=== PATIENT | male | born 1990 | race Caucasian/White ===

== ENCOUNTER 2018-10-20 16:30 | Emergency (ER) | payer SELFPAY ==
--- NOTE | 2018-10-20 17:40 | ER ---
Nurse's Notes [facility] Name: Geoffrey Hurtado III Age: 28 yrs Sex: Male : 1990 Arrival Date: 10/20/2018 Time: 16:31 Bed 11 Private MD: Diagnosis: Allergic rhinitis due to pollen Presentation: 10/20 16:49 Presenting complaint: Sinus congestion, sneezing, and itching eyes and throat x 2 days, hb unrelieved by OTC allergy medication. Denies SOB/fever. Transition of care: patient was not received from another setting of care. 16:49 Method Of Arrival: Ambulatory hb 16:51 Onset of symptoms was October 19, 2018. Risk Assessment: Do you want to hurt yourself or hb someone else? Patient reports no desire to harm self or others. Care prior to arrival: None. 16:51 Acuity: MIRIAM 4 hb 18:30 Initial Sepsis Screen: Does the patient meet any 2 criteria? No. Patient's initial aj1 sepsis screen is negative. Does the patient have a suspected source of infection? No. Patient's initial sepsis screen is negative. Historical: - Allergies: 16:52 No Known Allergies; hb - Home Meds: 16:52 None [Active]; hb - PMHx: 16:52 Seasonal Allergies; hb - PSHx: 16:52 None; hb - Immunization history:: Adult Immunizations up to date. - Social history:: Smoking status: Patient uses tobacco products, smokes one-half pack cigarettes per day. - Ebola Screening: : No symptoms or risks identified at this time. Screenin:30 Abuse screen: Denies threats or abuse. Denies injuries from another. Nutritional aj1 screening: No deficits noted. Tuberculosis screening: No symptoms or risk factors identified. 18:30 Fall Risk None identified. aj1 Assessment: 17:30 General: Appears in no apparent distress. comfortable, Behavior is calm, cooperative, aj1 appropriate for age. Pain: Denies pain. Neuro: Level of Consciousness is awake, alert, obeys commands, Oriented to person, place, time, situation. Cardiovascular: Patient's skin is warm and dry. Respiratory: Reports cough that is dry, Airway is patent Respiratory effort is even, unlabored, Respiratory pattern is regular, symmetrical. GI: No signs and/or symptoms were reported involving the gastrointestinal system. : No signs and/or symptoms were reported regarding the genitourinary system. EENT: Reports itchy, watery eyes, itchy throat. Derm: No signs and/or symptoms reported regarding the dermatologic system. Skin is pink, warm \T\ dry. normal. Musculoskeletal: No signs and/or symptoms reported regarding the musculoskeletal system. Circulation, motion, and sensation intact. Vital Signs: 16:51 BP 115 / 82; Pulse 70; Resp 16; Temp 98.1; Pulse Ox 100% on R/A; Pain 3/10; hb ED Course: 16:31 Patient arrived in ED. as 16:52 Triage completed. hb 16:52 Arm band placed on. hb 17:26 Jovani Caruso PA is PHCP. jr8 17:26 Arthur Castro MD is Attending Physician. jr8 17:30 Shilpa Bustillo, RN is Primary Nurse. aj1 17:30 Patient has correct armband on for positive identification. Bed in low position. Call aj1 light in reach. Side rails up X 1. 17:30 No provider procedures requiring assistance completed. aj1 18:29 Patient did not have IV access during this emergency room visit. aj1 Administered Medications: 18:05 Drug: Decadron 10 mg Route: IM; Site: left gluteus; aj1 18:29 Follow up: Response: No adverse reaction aj1 Outcome: 17:39 Discharge ordered by . jr8 18:29 Discharged to home ambulatory. aj1 18:29 Condition: good 18:29 Discharge instructions given to patient, Instructed on discharge instructions, follow up and referral plans. medication usage, Demonstrated understanding of instructions, follow-up care, medications, Prescriptions given X 2. 18:30 Patient left the ED. aj1 Signatures: Shilpa Bustillo, RN RN aj1 Patricia Rosales Josh, PA PA jr Irasema Mitchell, JACQUELYN VALLADARES
--- NOTE | 2018-10-20 17:40 | EDPHYS ---
Physician Documentation [facility] Name: Geoffrey Hurtado III Age: 28 yrs Sex: Male : 1990 Arrival Date: 10/20/2018 Time: 16:31 Bed 11 Private MD: ED Physician Arthur Castro HPI: 10/20 17:38 This 28 yrs old Male presents to ER via Ambulatory with complaints of Allergy jr8 Symptoms. 17:38 Patient stated that he is having rhinorrhea, itchy throat, watery eyes, sneezing for jr8 the past couple of weeks. Has been doing OTC antihistamines without relief . Severity of symptoms: At their worst the symptoms were moderate in the emergency department the symptoms are unchanged. It is unknown whether or not the patient has had similar symptoms in the past. The patient has not recently seen a physician. Historical: - Allergies: 16:52 No Known Allergies; hb - Home Meds: 16:52 None [Active]; hb - PMHx: 16:52 Seasonal Allergies; hb - PSHx: 16:52 None; hb - Immunization history:: Adult Immunizations up to date. - Social history:: Smoking status: Patient uses tobacco products, smokes one-half pack cigarettes per day. - Ebola Screening: : No symptoms or risks identified at this time. ROS: 17:38 Eyes: Negative for injury, pain, redness, and discharge, Neck: Negative for injury, jr8 pain, and swelling, Cardiovascular: Negative for chest pain, palpitations, and edema, Respiratory: Negative for shortness of breath, cough, wheezing, and pleuritic chest pain, Abdomen/GI: Negative for abdominal pain, nausea, vomiting, diarrhea, and constipation, Back: Negative for injury and pain, MS/Extremity: Negative for injury and deformity, Skin: Negative for injury, rash, and discoloration, Neuro: Negative for headache, weakness, numbness, tingling, and seizure. 17:38 ENT: Positive for rhinorrhea, sinus congestion, Negative for drainage from ear(s), ear pain, sore throat, difficulty swallowing, difficulty handling secretions, hoarseness. Exam: 17:38 Eyes: Pupils equal round and reactive to light, extra-ocular motions intact. Lids and jr8 lashes normal. Conjunctiva and sclera are non-icteric and not injected. Cornea within normal limits. Periorbital areas with no swelling, redness, or edema. ENT: Nares patent. No nasal discharge, no septal abnormalities noted. Tympanic membranes are normal and external auditory canals are clear. Oropharynx with no redness, swelling, or masses, exudates, or evidence of obstruction, uvula midline. Mucous membranes moist. Neck: Trachea midline, no thyromegaly or masses palpated, and no cervical lymphadenopathy. Supple, full range of motion without nuchal rigidity, or vertebral point tenderness. No Meningismus. Cardiovascular: Regular rate and rhythm with a normal S1 and S2. No gallops, murmurs, or rubs. Normal PMI, no JVD. No pulse deficits. Respiratory: Lungs have equal breath sounds bilaterally, clear to auscultation and percussion. No rales, rhonchi or wheezes noted. No increased work of breathing, no retractions or nasal flaring. Abdomen/GI: Soft, non-tender, with normal bowel sounds. No distension or tympany. No guarding or rebound. No evidence of tenderness throughout. Back: No spinal tenderness. No costovertebral tenderness. Full range of motion. Skin: Warm, dry with normal turgor. Normal color with no rashes, no lesions, and no evidence of cellulitis. MS/ Extremity: Pulses equal, no cyanosis. Neurovascular intact. Full, normal range of motion. Neuro: Awake and alert, GCS 15, oriented to person, place, time, and situation. Cranial nerves II-XII grossly intact. Motor strength 5/5 in all extremities. Sensory grossly intact. Cerebellar exam normal. Normal gait. Vital Signs: 16:51 BP 115 / 82; Pulse 70; Resp 16; Temp 98.1; Pulse Ox 100% on R/A; Pain 3/10; hb MDM: 17:26 Patient medically screened. jr8 17:38 Data reviewed: vital signs, nurses notes, and as a result, I will discharge patient. jr8 Data interpreted: Pulse oximetry: on room air is 100 %. Interpretation: normal. Counseling: I had a detailed discussion with the patient and/or guardian regarding: the historical points, exam findings, and any diagnostic results supporting the discharge/admit diagnosis, the need for outpatient follow up, a family practitioner, to return to the emergency department if symptoms worsen or persist or if there are any questions or concerns that arise at home. Administered Medications: 18:05 Drug: Decadron 10 mg Route: IM; Site: left gluteus; aj1 18:29 Follow up: Response: No adverse reaction aj1 Disposition: 10/21 06:45 Co-signature as Attending Physician, Arthur Castro MD I agree with the assessment and henok plan of care. Disposition: 10/20/18 17:39 Discharged to Home. Impression: Allergic rhinitis due to pollen. - Condition is Stable. - Discharge Instructions: Allergies, Adult, Nasal Allergies. - Prescriptions for Xyzal 5 mg Oral tablet - take 1 tablet by ORAL route once daily in the evening; 30 tablet. Prednisone 20 mg Oral Tablet - take 1 tablet by ORAL route once daily for 5 days; 5 tablet. - Work release form, Medication Reconciliation Form, Thank You Letter, Antibiotic Education, Prescription Opioid Use form. - Follow up: Private Physician; When: As needed; Reason: Recheck today's complaints, Continuance of care, Re-evaluation by your physician. - Problem is new. - Symptoms have improved. - Notes: Claritin D for one week then switch to Xyzal Signatures: Shilpa Bustillo, RN RN aj1 Arthur Castro MD MD cha Roszak, Josh, PA PA jr8 Irasema Mitchell RN RN Corrections: (The following items were deleted from the chart) 10/20 17:38 17:38 The patient has not experienced similar symptoms in the past, jr8 jr8 18:30 17:39 10/20/2018 17:39 Discharged to Home. Impression: Allergic rhinitis due to pollen. aj1 Condition is Stable. Forms are Medication Reconciliation Form, Thank You Letter, Antibiotic Education, Prescription Opioid Use. Follow up: Private Physician; When: As needed; Reason: Recheck today's complaints, Continuance of care, Re-evaluation by your physician. Problem is new. Symptoms have improved. jr8
[2018-10-20] MEDS ORDERED: DEXAMETHASONE 4 MG/ML VIAL ONE (18:12)
== END 2018-10-20 18:30 | disposition home or self-care (01) ==
LOC: ER 16:30
DX: J30.1 Allergic rhinitis due to pollen (principal); F17.210 Nicotine dependence, cigarettes, uncomplicated
CPT/HCPCS: 96372; 99283

== ENCOUNTER 2019-01-27 19:01 | Emergency (ER) | payer SELFPAY ==
--- NOTE | 2019-01-27 20:04 | RAD REPORT ---
EXAM DESCRIPTION: RAD - Chest Pa And Lat (2 Views) - 01/27/2019 7:58 pm CLINICAL HISTORY: TRAUMA Chest pain. COMPARISON: <Comparisons> FINDINGS: The lungs are clear. The heart is normal in size. No displaced fractures. IMPRESSION: No acute or concerning finding suspected.
--- NOTE | 2019-01-27 20:05 | RAD REPORT ---
EXAM DESCRIPTION: RAD - Knee Right 3 View - 01/27/2019 7:59 pm CLINICAL HISTORY: PAIN Trauma COMPARISON: <Comparisons> FINDINGS: No fracture or dislocation evident.
[2019-01-27] MEDS ORDERED: HYDROCODONE/APAP 5/325 MG TAB ONE (21:08)
[2019-01-27] MEDS ORDERED: hydrOXYzine HCl 25 MG TAB ONE (21:08)
--- NOTE | 2019-01-27 22:15 | ER ---
Nurse's Notes [facility] Name: Geoffrey Hurtado III Age: 29 yrs Sex: Male : 1990 Arrival Date: 01/27/2019 Time: 19:05 Bed 23 Private MD: Diagnosis: Fall (on) (from) other stairs and steps;Pain in right knee Presentation: 01/27 19:07 Presenting complaint: Patient states: He fell 6 feet off of a roof on Saturday, states aj1 that he landed on his side with his knee bent behind him. Reports pain to left shoulder and right knee. Denies hitting head, denies LOC, vomiting. Denies abdominal pain, denies chest pain. Transition of care: patient was not received from another setting of care. Onset of symptoms was January 2019. Risk Assessment: Do you want to hurt yourself or someone else? Patient reports no desire to harm self or others. Initial Sepsis Screen: Does the patient meet any 2 criteria? HR > 90 bpm. No. Patient's initial sepsis screen is negative. Does the patient have a suspected source of infection? No. Patient's initial sepsis screen is negative. Care prior to arrival: None. 19:07 Method Of Arrival: Ambulatory aj1 19:07 Acuity: MIRIAM 3 aj1 Triage Assessment: 19:09 General: Appears in no apparent distress. comfortable, Behavior is calm, cooperative, aj1 appropriate for age. Pain: Complains of pain in anterior aspect of left shoulder, posterior aspect of left shoulder and right knee Pain currently is 5 out of 10 on a pain scale. Neuro: Level of Consciousness is awake, alert, obeys commands, Oriented to person, place, time, situation. Cardiovascular: Patient's skin is warm and dry. Respiratory: Airway is patent Respiratory effort is even, unlabored, Respiratory pattern is regular, symmetrical. Derm: No signs and/or symptoms reported regarding the dermatologic system. Skin is pink, warm \T\ dry. normal. Musculoskeletal: Range of motion: limited in right knee. Injury Description: Patient states that he fell from the roof 3 days ago. Historical: - Allergies: 19:09 No Known Allergies; aj1 - Home Meds: 19: None [Active]; aj1 - PMHx: 19:09 None; aj1 - PSHx: 19:09 None; aj1 - Immunization history:: Flu vaccine is up to date. - Social history:: Smoking status: Patient uses tobacco products, smokes one-half pack cigarettes per day. - Ebola Screening: : Patient denies travel to an Ebola-affected area in the 21 days before illness onset. Screenin:10 Abuse screen: Denies threats or abuse. Denies injuries from another. Nutritional aj1 screening: No deficits noted. Tuberculosis screening: No symptoms or risk factors identified. 22:15 Fall Risk None identified. aj1 Assessment: 19:10 Reassessment: see triage assessment. aj1 20:10 Reassessment: Patient appears in no apparent distress at this time. No changes from aj1 previously documented assessment. Patient and/or family updated on plan of care and expected duration. Pain level reassessed. Patient is alert, oriented x 3, equal unlabored respirations, skin warm/dry/pink. 21:15 Reassessment: Patient appears in no apparent distress at this time. No changes from aj1 previously documented assessment. Patient and/or family updated on plan of care and expected duration. Pain level reassessed. Patient is alert, oriented x 3, equal unlabored respirations, skin warm/dry/pink. 22:15 Reassessment: Patient appears in no apparent distress at this time. No changes from aj1 previously documented assessment. Patient and/or family updated on plan of care and expected duration. Pain level reassessed. Patient is alert, oriented x 3, equal unlabored respirations, skin warm/dry/pink. Vital Signs: 19:09 BP 130 / 65; Pulse 90; Resp 18; Temp 97.6; Pulse Ox 98% on R/A; Weight 90.72 kg (R); aj1 Height 5 ft. 7 in. (170.18 cm) (R); Pain 5/10; 21:36 BP 121 / 82; Pulse 65; Resp 18; Pulse Ox 100% on R/A; aj1 19:09 Body Mass Index 31.32 (90.72 kg, 170.18 cm) aj ED Course: 19:05 Patient arrived in ED. es 19:09 Triage completed. aj1 19:09 Arm band placed on Patient placed in an exam room. aj1 19:10 Patient has correct armband on for positive identification. Bed in low position. Call [facility] light in reach. Side rails up X 1. 19:10 No provider procedures requiring assistance completed. aj1 19:27 [facility] snw 19:27 Edgar Jama MD is Attending Physician. snw 19:49 Shilpa Bustillo, RN is Primary Nurse. aj1 19:58 Knee Right 3 View XRAY In Process Unspecified. EDMS 19:58 Chest Pa And Lat (2 Views) XRAY In Process Unspecified. EDMS 20:45 Patient did not have IV access during this emergency room visit. Knee immobilizer ca1 applied on right knee. Administered Medications: 20:56 Drug: [place] 5 mg-325 mg 1 tabs Route: PO; aj1 22:15 Follow up: Response: No adverse reaction; Pain is decreased aj1 20:56 Drug: Atarax 50 mg Route: PO; aj1 22:15 Follow up: Response: No adverse reaction aj1 Outcome: 22:14 Discharge ordered by MD. snw 22:23 Discharged to home ambulatory. aj1 22:23 Condition: good 22:23 Discharge instructions given to patient, Instructed on discharge instructions, follow up and referral plans. medication usage, Demonstrated understanding of instructions, follow-up care, medications, Prescriptions given X 2. 22:23 Patient left the ED. aj1 Signatures: Dispatcher [employer] Shilpa Rodriguez, RN RN aj1 Rosette Valero FNP-C [employer] WHACK[employer]-Csnw Leonor Vee Cheryl RN RN ca1
--- NOTE | 2019-01-27 22:15 | EDPHYS ---
Physician Documentation [facility] Name: Geoffrey Hurtado III Age: 29 yrs Sex: Male : 1990 Arrival Date: 01/27/2019 Time: 19:05 Bed 23 Private MD: ED Physician Edgar Jama HPI: 01/27 21:10 This 29 yrs old Male presents to ER via Ambulatory with complaints of Knee snw Injury. 21:10 Onset: The symptoms/episode began/occurred suddenly, 4 day(s) ago, and became snw persistent. The patient has not experienced similar symptoms in the past. The patient has not recently seen a physician. Pt states he fell from a roof on Sat and hyperflexed right knee, mild left shoulder pain, Denies LOC, chest pain, abd pain, or other injury/concern. Historical: - Allergies: 19:09 No Known Allergies; aj1 - Home Meds: 19:09 None [Active]; aj1 - PMHx: 19:09 None; aj1 - PSHx: 19:09 None; aj1 - Immunization history:: Flu vaccine is up to date. - Social history:: Smoking status: Patient uses tobacco products, smokes one-half pack cigarettes per day. - Ebola Screening: : Patient denies travel to an Ebola-affected area in the 21 days before illness onset. ROS: 21:10 Constitutional: Negative for fever, chills, and weight loss, Eyes: Negative for injury, snw pain, redness, and discharge, ENT: Negative for injury, pain, and discharge, Neck: Negative for injury, pain, and swelling, Cardiovascular: Negative for chest pain, palpitations, and edema, Respiratory: Negative for shortness of breath, cough, wheezing, and pleuritic chest pain, Abdomen/GI: Negative for abdominal pain, nausea, vomiting, diarrhea, and constipation, Back: Negative for injury and pain, : Negative for injury, bleeding, discharge, and swelling, Skin: Negative for injury, rash, and discoloration, Neuro: Negative for headache, weakness, numbness, tingling, and seizure. 21:10 MS/extremity: Positive for injury or acute deformity, left shoulder and right knee pain. Exam: 21:06 Head/Face: Normocephalic, atraumatic. Eyes: Pupils equal round and reactive to light, snw extra-ocular motions intact. Lids and lashes normal. Conjunctiva and sclera are non-icteric and not injected. Cornea within normal limits. Periorbital areas with no swelling, redness, or edema. ENT: Nares patent. No nasal discharge, no septal abnormalities noted. Tympanic membranes are normal and external auditory canals are clear. Oropharynx with no redness, swelling, or masses, exudates, or evidence of obstruction, uvula midline. Mucous membranes moist. Neck: Trachea midline, no thyromegaly or masses palpated, and no cervical lymphadenopathy. Supple, full range of motion without nuchal rigidity, or vertebral point tenderness. No Meningismus. Chest/axilla: Normal chest wall appearance and motion. Nontender with no deformity. No lesions are appreciated. Cardiovascular: Regular rate and rhythm with a normal S1 and S2. No gallops, murmurs, or rubs. Normal PMI, no JVD. No pulse deficits. Respiratory: Lungs have equal breath sounds bilaterally, clear to auscultation and percussion. No rales, rhonchi or wheezes noted. No increased work of breathing, no retractions or nasal flaring. Abdomen/GI: Soft, non-tender, with normal bowel sounds. No distension or tympany. No guarding or rebound. No evidence of tenderness throughout. Back: No spinal tenderness. No costovertebral tenderness. Full range of motion. 21:06 Constitutional: The patient appears alert, awake. 21:06 Musculoskeletal/extremity: Extremities: grossly normal except: noted in the posterior aspect of right knee: decreased ROM, swelling, tenderness, ROM: limited active range of motion due to pain, limited passive range of motion due to pain, Circulation is intact in all extremities. Sensation intact. 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 Vital Signs: 19:09 BP 130 / 65; Pulse 90; Resp 18; Temp 97.6; Pulse Ox 98% on R/A; Weight 90.72 kg (R); aj1 Height 5 ft. 7 in. (170.18 cm) (R); Pain 5/10; 21:36 BP 121 / 82; Pulse 65; Resp 18; Pulse Ox 100% on R/A; aj1 19:09 Body Mass Index 31.32 (90.72 kg, 170.18 cm) [facility] MDM: 19:28 Patient medically screened. snw 22:15 Data reviewed: vital signs, nurses notes. Data interpreted: Pulse oximetry: on room air snw is 100 %. Interpretation: normal. Counseling: I had a detailed discussion with the patient and/or guardian regarding: the historical points, exam findings, and any diagnostic results supporting the discharge/admit diagnosis, the presence of at least one elevated blood pressure reading (>120/80) during this emergency department visit, lab results, radiology results, the need for outpatient follow up, to return to the emergency department if symptoms worsen or persist or if there are any questions or concerns that arise at home. Special discussion: Based on the history and exam findings, there is no indication for further emergent testing or inpatient evaluation. I discussed with the patient/guardian the need to see the orthopedic surgeon for further evaluation of the symptoms. I discussed with the patient/guardian the need to see the primary care provider for further evaluation of the symptoms. 01/27 20:41 Order name: Strep; Complete Time: 22:15 snw 01/27 21:49 Order name: Throat Culture EDMS 01/27 19:43 Order name: Knee Right 3 View XRAY; Complete Time: 20:32 snw 01/27 19:43 Order name: Chest Pa And Lat (2 Views) XRAY; Complete Time: 20:32 snw 01/27 20:41 Order name: Knee Immobilizer: right; Complete Time: 20:52 snw Administered Medications: 20:56 Drug: [place] 5 mg-325 mg 1 tabs Route: PO; [facility] 22:15 Follow up: Response: No adverse reaction; Pain is decreased aj1 20:56 Drug: Atarax 50 mg Route: PO; aj1 22:15 Follow up: Response: No adverse reaction [facility] Disposition: 01/27/19 22:14 Discharged to Home. Impression: Fall (on) (from) other stairs and steps, Pain in right knee. - Condition is Stable. - Discharge Instructions: Joint Pain, Fall Prevention in the Home, How to Use a Knee Brace, Musculoskeletal Pain, Psoriasis, Knee Pain, Cryotherapy, Heat Therapy. - Prescriptions for Diclofenac Sodium 75 mg Oral Tablet Sustained Release - take 1 tablet by ORAL route 2 times per day; 30 tablet. orphenadrine citrate 100 mg Oral Tablet Sustained Release - take 1 tablet by ORAL route 2 times per day As needed; 20 tablet. - Work release form, Medication Reconciliation Form, Thank You Letter, Antibiotic Education, Prescription Opioid Use form. - Follow up: Private Physician; When: 2 - 3 days; Reason: Recheck today's complaints, Continuance of care, Re-evaluation by your physician. Follow up: Emergency Department; When: As needed; Reason: Worsening of condition. Signatures: Dispatcher [employer] EDShilpa Tse RN RN aj1 Rosette Valero, ROAD COMMISSIONER-C ROAD COMMISSIONER-Csnw Corrections: (The following items were deleted from the chart) 22:23 22:14 01/27/2019 22:14 Discharged to Home. Impression: Fall (on) (from) other stairs aj1 and steps; Pain in right knee. Condition is Stable. Discharge Instructions: Joint Pain, Fall Prevention in the Home, How to Use a Knee Brace, Musculoskeletal Pain, Psoriasis, Knee Pain, Cryotherapy, Heat Therapy. Prescriptions for Diclofenac Sodium 75 mg Oral Tablet Sustained Release - take 1 tablet by ORAL route 2 times per day; 30 tablet, orphenadrine citrate 100 mg Oral Tablet Sustained Release - take 1 tablet by ORAL route 2 times per day As needed; 20 tablet. and Forms are Work release form, Medication Reconciliation Form, Thank You Letter, Antibiotic Education, Prescription Opioid Use. Follow up: Private Physician; When: 2 - 3 days; Reason: Recheck today's complaints, Continuance of care, Re-evaluation by your physician. Follow up: Emergency Department; When: As needed; Reason: Worsening of condition. snw
== END 2019-01-27 22:23 | disposition home or self-care (01) ==
LOC: ER 19:01
DX: M25.561 Pain in right knee (principal); M25.512 Pain in left shoulder; W17.89XA Other fall from one level to another, initial encounter; F17.210 Nicotine dependence, cigarettes, uncomplicated
CPT/HCPCS: 71046; 87070; 87081; 99284

== ENCOUNTER 2019-05-31 10:18 | Emergency (ER) | payer OTHER, SELFPAY ==
[2019-05-31] MEDS ORDERED: NA CHLORIDE 0.9% 1,000 ML ONE (11:52)
--- NOTE | 2019-05-31 12:38 | ER ---
Nurse's Notes [facility] Name: Geoffrey Hurtado III Age: 29 yrs Sex: Male : 1990 Arrival Date: 05/31/2019 Time: 10:23 Bed 19 Private MD: Diagnosis: Acute upper respiratory infection, unspecified Presentation: 05/31 10:45 Presenting complaint: Patient states: fever, sore throat, body aches, headache, no iw vomiting 013.5 temp this morning, took DayQuil one hour ago. Transition of care: patient was not received from another setting of care. Onset of symptoms was May 30, 2019. Risk Assessment: Do you want to hurt yourself or someone else? Patient reports no desire to harm self or others. Initial Sepsis Screen: Does the patient meet any 2 criteria? No. Patient's initial sepsis screen is negative. Does the patient have a suspected source of infection? No. Patient's initial sepsis screen is negative. Care prior to arrival: None. 10:45 Method Of Arrival: Ambulatory iw 10:45 Acuity: MIRIAM 4 iw Triage Assessment: 10:48 General: Appears in no apparent distress. comfortable, ill, Behavior is calm, bp cooperative, appropriate for age. Pain: Complains of pain in THROAT. EENT: Nares with drainage noted Throat is reddened. Neuro: No deficits noted. Cardiovascular: No deficits noted. Respiratory: No deficits noted. GI: No signs and/or symptoms were reported involving the gastrointestinal system. : No signs and/or symptoms were reported regarding the genitourinary system. Derm: No deficits noted. Musculoskeletal: No deficits noted. Historical: - Allergies: 10:48 No Known Allergies; iw - Home Meds: 10:48 None [Active]; iw - PMHx: 10:48 None; iw - PSHx: 10:48 None; iw - Immunization history:: Adult Immunizations not up to date. - Social history:: Smoking status: Patient uses tobacco products, smokes one-half pack cigarettes per day. - Ebola Screening: : Patient negative for fever greater than or equal to 101.5 degrees Fahrenheit, and additional compatible Ebola Virus Disease symptoms Patient denies exposure to infectious person Patient denies travel to an Ebola-affected area in the 21 days before illness onset No symptoms or risks identified at this time. Screenin:00 Abuse screen: Denies threats or abuse. Denies injuries from another. Nutritional bp screening: No deficits noted. Tuberculosis screening: No symptoms or risk factors identified. Fall Risk None identified. Assessment: 10:48 General: SEE TRIAGE NOTE. Respiratory: Airway is patent Respiratory effort is even, bp unlabored, Breath sounds are clear bilaterally. 12:57 Reassessment: PT D/C HOME AMBULATORY WITH FAMILY, DX WITH INFLUENZA. bp Vital Signs: 10:48 BP 117 / 66; Pulse 103; Resp 16 S; Temp 99.2(TE); Pulse Ox 97% on R/A; Weight 92.99 kg; iw Height 5 ft. 7 in. (170.18 cm); Pain 5/10; 12:21 Pulse 82; Resp 16; Pulse Ox 97% ; bp 10:48 Body Mass Index 32.11 (92.99 kg, 170.18 cm) iw ED Course: 10:23 Patient arrived in ED. mr 10:29 [facility] kb 10:29 Richard Gonzalez MD is Attending Physician. kb 10:40 Jame Wall, JACQUELYN is Primary Nurse. bp 10:47 Triage completed. iw 10:48 Arm band placed on. iw 11:00 Patient has correct armband on for positive identification. Bed in low position. Call bp light in reach. Side rails up X2. 12:58 No provider procedures requiring assistance completed. IV discontinued, intact, bp bleeding controlled, No redness/swelling at site. Pressure dressing applied. Administered Medications: 12:00 Drug: NS 0.9% 1000 ml Route: IV; Rate: 1000 ml; Site: left forearm; bp 12:58 Follow up: IV Status: Completed infusion; IV Intake: 1000ml bp Intake: 12:58 IV: 1000ml; Total: 1000ml. bp Outcome: 12:37 Discharge ordered by . kb 12:58 Discharged to home ambulatory, with family. bp 12:58 Condition: stable 12:58 Discharge instructions given to patient, Instructed on discharge instructions, follow up and referral plans. medication usage, Demonstrated understanding of instructions, follow-up care, medications, Prescriptions given X 1. 12:59 Patient left the ED. bp Signatures: Judith Garcia FNP-C FNP-Ckb Rivera, Mary mr Williams, Irene, RN RN iw Jame Wall, RN RN bp
--- NOTE | 2019-05-31 12:38 | EDPHYS ---
Physician Documentation [facility] Name: Geoffrey Hurtado III Age: 29 yrs Sex: Male : 1990 Arrival Date: 05/31/2019 Time: 10:23 Bed 19 Private MD: ED Physician Richard Gonzalez HPI: 05/31 13:16 This 29 yrs old Male presents to ER via Ambulatory with complaints of Fever, kb Sore Throat, Headache. 13:16 The patient or guardian reports flu symptoms, arthralgias, low-grade fever, myalgias. kb Onset: The symptoms/episode began/occurred yesterday. Severity of symptoms: At their worst the symptoms were moderate, in the emergency department the symptoms are unchanged. Modifying factors: The symptoms are alleviated by nothing, the symptoms are aggravated by nothing. Associated signs and symptoms: Pertinent positives: fever, sore throat, Pertinent negatives: chest pain, diarrhea, ear ache, nausea, rhinorrhea, vomiting. The patient has not experienced similar symptoms in the past. The patient has not recently seen a physician. Pt reports sore throat, body aches, malaise, fever, chills, headache since yesterday. . Historical: - Allergies: 10:48 No Known Allergies; iw - Home Meds: 10:48 None [Active]; iw - PMHx: 10:48 None; iw - PSHx: 10:48 None; iw - Immunization history:: Adult Immunizations not up to date. - Social history:: Smoking status: Patient uses tobacco products, smokes one-half pack cigarettes per day. - Ebola Screening: : Patient negative for fever greater than or equal to 101.5 degrees Fahrenheit, and additional compatible Ebola Virus Disease symptoms Patient denies exposure to infectious person Patient denies travel to an Ebola-affected area in the 21 days before illness onset No symptoms or risks identified at this time. ROS: 13:15 Neck: Negative for injury, pain, and swelling, Cardiovascular: Negative for chest pain, kb palpitations, and edema, Respiratory: Negative for shortness of breath, cough, wheezing, and pleuritic chest pain, Abdomen/GI: Negative for abdominal pain, nausea, vomiting, diarrhea, and constipation, Back: Negative for injury and pain, MS/Extremity: Negative for injury and deformity, Skin: Negative for injury, rash, and discoloration, Neuro: Negative for headache, weakness, numbness, tingling, and seizure. 13:15 Constitutional: Positive for body aches, chills, fatigue, fever, malaise. 13:15 ENT: Positive for sore throat. Exam: 13:16 Head/Face: Normocephalic, atraumatic. ENT: Nares patent. No nasal discharge, no kb septal abnormalities noted. Tympanic membranes are normal and external auditory canals are clear. Oropharynx with no redness, swelling, or masses, exudates, or evidence of obstruction, uvula midline. Mucous membranes moist. Neck: Trachea midline, no thyromegaly or masses palpated, and no cervical lymphadenopathy. Supple, full range of motion without nuchal rigidity, or vertebral point tenderness. No Meningismus. Chest/axilla: Normal chest wall appearance and motion. Nontender with no deformity. No lesions are appreciated. Cardiovascular: Regular rate and rhythm with a normal S1 and S2. No gallops, murmurs, or rubs. Normal PMI, no JVD. No pulse deficits. Respiratory: Lungs have equal breath sounds bilaterally, clear to auscultation and percussion. No rales, rhonchi or wheezes noted. No increased work of breathing, no retractions or nasal flaring. Abdomen/GI: Soft, non-tender, with normal bowel sounds. No distension or tympany. No guarding or rebound. No evidence of tenderness throughout. Skin: Warm, dry with normal turgor. Normal color with no rashes, no lesions, and no evidence of cellulitis. MS/ Extremity: Pulses equal, no cyanosis. Neurovascular intact. Full, normal range of motion. Neuro: Awake and alert, GCS 15, oriented to person, place, time, and situation. Cranial nerves II-XII grossly intact. Motor strength 5/5 in all extremities. Sensory grossly intact. Cerebellar exam normal. Normal gait. 13:16 Constitutional: The patient appears alert, awake, uncomfortable. Vital Signs: 10:48 BP 117 / 66; Pulse 103; Resp 16 S; Temp 99.2(TE); Pulse Ox 97% on R/A; Weight 92.99 kg; iw Height 5 ft. 7 in. (170.18 cm); Pain 5/10; 12:21 Pulse 82; Resp 16; Pulse Ox 97% ; bp 10:48 Body Mass Index 32.11 (92.99 kg, 170.18 cm) iw MDM: 10:45 Patient medically screened. kb 12:36 Data reviewed: vital signs, nurses notes. Data interpreted: Pulse oximetry: on room air kb is 97 %. Interpretation: normal. Counseling: I had a detailed discussion with the patient and/or guardian regarding: the historical points, exam findings, and any diagnostic results supporting the discharge/admit diagnosis, lab results, the need for outpatient follow up, a family practitioner, to return to the emergency department if symptoms worsen or persist or if there are any questions or concerns that arise at home. 13:19 ED course: Tamiflu prescribed due to flu-like symptoms, as well as, is having kb tomorrow.. 05/31 10:45 Order name: Flu; Complete Time: 11:26 kb 05/31 10:45 Order name: Strep; Complete Time: 11:19 kb 05/31 11:17 Order name: Throat Culture [facility] 05/31 11:35 Order name: Casey Screen Profile; Complete Time: 12:36 kb Administered Medications: 12:00 Drug: NS 0.9% 1000 ml Route: IV; Rate: 1000 ml; Site: left forearm; bp 12:58 Follow up: IV Status: Completed infusion; IV Intake: 1000ml bp Disposition: 13:54 Co-signature as Attending Physician, Richard Gonzalez MD. rn Disposition: 05/31/19 12:37 Discharged to Home. Impression: Acute upper respiratory infection, unspecified. - Condition is Stable. - Discharge Instructions: Upper Respiratory Infection, Adult, [id number], Influenza, Adult, [id number], Viral Respiratory Infection, [id number]. - Prescriptions for Tamiflu 75 mg Oral Capsule - take 1 tablet by ORAL route every 12 hours for 5 days; 10 tablet. - Medication Reconciliation Form, Thank You Letter, Antibiotic Education, Prescription Opioid Use form. - Follow up: Emergency Department; When: As needed; Reason: Worsening of condition. Follow up: Private Physician; When: 2 - 3 days; Reason: Recheck today's complaints, Continuance of care, Re-evaluation by your physician. Signatures: Dispatcher [employer] EDJudtih Vasquez, STATION INSTALLATION SUPERVISOR-C ANTONIO-Rosa Moqsuera, RN Richard Valle MD MD rn Peltier, Brian, JACQUELYN RN bp Corrections: (The following items were deleted from the chart) 12:59 12:37 05/31/2019 12:37 Discharged to Home. Impression: Acute upper respiratory bp infection, unspecified. Condition is Stable. Forms are Medication Reconciliation Form, Thank You Letter, Antibiotic Education, Prescription Opioid Use. Follow up: Emergency Department; When: As needed; Reason: Worsening of condition. Follow up: Private Physician; When: 2 - 3 days; Reason: Recheck today's complaints, Continuance of care, Re-evaluation by your physician. kb
[2019-05-31 13:04] VITALS: BP 117/66; TEMP 99.2; O2SAT 97
== END 2019-05-31 12:59 | disposition home or self-care (01) ==
LOC: ER 10:18
DX: J06.9 Acute upper respiratory infection, unspecified (principal); F17.210 Nicotine dependence, cigarettes, uncomplicated
CPT/HCPCS: 87070; 36415; 86308; 87081; 87804 ×2; 96360; 99283; J7030

== ENCOUNTER 2024-04-03 07:39 | Emergency (ER) | payer SELFPAY ==
--- OUTSIDE RECORDS SUMMARY | 2024-04-03 07:42 | XMS REPORT | Continuity of Care Document ---
Author Name Unknown Address [address] [place] [id number] [facility] thconnect Address [address] [place] [address] Care Team Providers Care Cook Chill Technician Name Role Phone Unavailable Unavailable Unavailable Encounters Start Date/Time End Date/Time Encounter Type Admission Type Attending [facility] Care Department Encounter ID Source 2023-07-26 13:43:21 2023-07-26 13:43:21 Outpatient [facility] [id number] 2023-06-19 11:37:24 2023-06-19 11:37:24 Outpatient [facility] [id number] 2023-06-18 13:44:05 2023-06-18 13:44:05 Outpatient [facility] [address]
--- NOTE | 2024-04-03 08:00 | ER ---
Nurse's Notes [facility] Name: Geoffrey Hurtado III Age: 34 yrs Sex: Male : 1990 Arrival Date: 04/03/2024 Time: 07:39 Bed IW1 Private MD: Diagnosis: Folliculitis Presentation: 04/03 07:52 Chief complaint: Painful sores under left arm arm, back, and right arm x 1 week. hb Coronavirus screen: At this time, the client does not indicate any symptoms associated with coronavirus-19. Ebola Screen: No symptoms or risks identified at this time. Initial Sepsis Screen: Does the patient meet any 2 criteria? No. Patient's initial sepsis screen is negative. Does the patient have a suspected source of infection? No. Patient's initial sepsis screen is negative. Risk Assessment: Do you want to hurt yourself or someone else? Patient reports no desire to harm self or others. Onset of symptoms was March 27, 2024. 07:52 Method Of Arrival: Ambulatory hb 07:52 Acuity: MIRIAM 4 hb Triage Assessment: 07:55 General: Appears in no apparent distress. Behavior is calm, cooperative. Pain: Pain hb currently is 4 out of 10 on a pain scale. Neuro: Level of Consciousness is awake, alert, obeys commands, Oriented to person, place, time, situation. Cardiovascular: Patient's skin is warm and dry. Respiratory: Respiratory effort is even, unlabored, Respiratory pattern is regular, symmetrical. Derm: Rash noted that is papular, red, raised, back,.bilateral armpit, right arm. Historical: - Allergies: 07:55 No Known Allergies; hb - Home Meds: 07:55 None [Active]; hb - PMHx: 07:55 None; hb - PSHx: 07:55 None; hb - Immunization history:: Adult Immunizations up to date. - Infectious Disease History:: Denies. - Social history:: Smoking status: Reported history of juuling and/or vaping. Screenin:04 [facility] ED Fall Risk Assessment (Adult) History of falling in the last 3 months, hb including since admission No falls in past 3 months (0 pts) Confusion or Disorientation No (0 pts) Intoxicated or Sedated No (0 pts) Impaired Gait No (0 pts) Mobility Assist Device Used No (0 pt) Altered Elimination No (0 pt) Score/Fall Risk Level 0 - 2 = Low Risk Oriented to surroundings, Maintained a safe environment, Educated pt \T\ family on fall prevention, incl call for assistance when getting out of bed. Abuse screen: Denies threats or abuse. Denies injuries from another. Nutritional screening: No deficits noted. Tuberculosis screening: No symptoms or risk factors identified. Assessment: 08:03 General: See triage assessment. . hb Vital Signs: 07:52 BP 133 / 95; Pulse 82; Resp 16; Temp 97.1(TE); Pulse Ox 100% on R/A; Weight 81.65 kg; hb Height 5 ft. 7 in. ; Pain 4/10; 07:52 Body Mass Index 28.19 (81.65 kg, 170.18 cm) hb 07:52 Pain Scale: Adult hb ED Course: 07:42 Patient arrived in ED. mg5 07:43 Ciro Hernandez MD is Attending Physician. ec2 07:55 Triage completed. hb 07:56 Arm band placed on. hb 08:04 Patient has correct armband on for positive identification. Provided Education on: hb medications, wound care, follow up. 08:04 No provider procedures requiring assistance completed. Patient did not have IV access hb during this emergency room visit. 08:06 Irasema Mitchell, RN is Primary Nurse. hb Administered Medications: No medications were administered Medication: 08:04 VIS not applicable for this client. hb Outcome: 07:55 Discharge ordered by . ec2 08:04 Discharged to home ambulatory, hb 08:04 Condition: stable 08:04 Discharge instructions given to patient, Instructed on discharge instructions, follow up and referral plans. medication usage, Demonstrated understanding of instructions, follow-up care, medications, Prescriptions given X 2, 08:06 Patient left the ED. hb Signatures: Irasema Mitchell RN RN Ghazal Palomino mg5 Ciro Hernandez MD MD ec2
--- NOTE | 2024-04-03 08:02 | EDPHYS ---
Physician Documentation [facility] Name: Geoffrey Hurtado III Age: 34 yrs Sex: Male : 1990 Arrival Date: 04/03/2024 Time: 07:39 Bed IW1 Private MD: ED Physician Ciro Hernandez HPI: 04/03 07:56 This 34 yrs old Male presents to ER via Ambulatory with complaints of Bumps ec2 On Back-Pain. 07:56 Patient arrives today for evaluation of 1 week of skin lesions. Patient reports that he ec2 had noticed some lesions on the left flank as well as the left axilla and right elbow. Patient reports he has been having some drainage from the areas. Reports no fevers or chills, no nausea or vomiting, no systemic symptoms. Patient denies drug use, denies any recent hot tub exposure. Patient reports that his daughter had similar lesions recently.. Historical: - Allergies: 07:55 No Known Allergies; hb - Home Meds: 07:55 None [Active]; hb - PMHx: 07:55 None; hb - PSHx: 07:55 None; hb - Immunization history:: Adult Immunizations up to date. - Infectious Disease History:: Denies. - Social history:: Smoking status: Reported history of juuling and/or vaping. ROS: 07:56 Constitutional: as per hpi ec2 Exam: 07:56 Constitutional: GEN: NAD Head: atraumatic Eyes: EOMI Ears: External ears are ec2 normal. CV: regular rate LUNGS: no respiratory distress ABD: non-distended SKIN: Multiple pustules noted on the left lower back as well as the left axilla and right elbow. No large fluctuance appreciated, no drainable abscess appreciated. No overlying erythema or warmth. No discharge noted. MSK: no evidence of trauma Vital Signs: 07:52 BP 133 / 95; Pulse 82; Resp 16; Temp 97.1(TE); Pulse Ox 100% on R/A; Weight 81.65 kg; hb Height 5 ft. 7 in. ; Pain 4/10; 07:52 Body Mass Index 28.19 (81.65 kg, 170.18 cm) hb 07:52 Pain Scale: Adult hb MDM: 07:43 Patient medically screened. ec2 07:56 Data reviewed: vital signs. ED course: Patient arrives today for skin lesions. ec2 Examination remarkable for skin findings as noted above. Suspect folliculitis given the locations of the lesions. Considered other processes such as abscesses, cellulitis, monkeypox. Patient otherwise systemically well-appearing, do not feel lab work such as CBC or BMP will be beneficial. Will start the patient empirically on antibiotics and have the patient follow-up outpatient expectantly with PCP. Return precautions given.. Administered Medications: No medications were administered Disposition Summary: 04/03/24 07:55 Discharge Ordered Notes: Location: Home ec2 Condition: Stable ec2 Diagnosis - Folliculitis ec2 Followup: ec2 - With: Private Physician - When: - Reason: Re-evaluation by your physician Discharge Instructions: - Discharge Summary Sheet ec2 - Folliculitis ec2 Forms: - Work release form hb - Medication Reconciliation Form ec2 - Antibiotic Education ec2 - Prescription Opioid Use ec2 - Patient Portal Instructions ec2 - Leadership Thank You Letter ec2 Prescriptions: - Bactrim DS 800-160 mg Oral Tablet - take 1 tablet ORAL route every 12 hours for 7 days; 14 tablet; Refills: 0, ec2 Product Selection Permitted - methocarbamol 500 mg Oral tablet - take 1 tablet ORAL route 4 times per day; 15 tablet; Refills: 0, Product ec2 Selection Permitted Signatures: Irasema Mitchell RN RN hb Corral, Edwin, MD MD ec2
[2024-04-03 08:10] VITALS: BP 133/95; TEMP 97.1; O2SAT 100
== END 2024-04-03 08:06 | disposition home or self-care (01) ==
LOC: ER 07:39
DX: L73.9 Follicular disorder, unspecified (principal)
CPT/HCPCS: 99283